=== PATIENT | male | born 1940 | race Caucasian/White ===

== ENCOUNTER 2024-04-18 16:42 | Emergency (ER) | payer MEDICARE, SELFPAY ==
[2024-04-18 17:05] VITALS: BP 210/104; PULSE 92; TEMP 36.7; O2SAT 96; BMI 31.7
[2024-04-18 17:54] LABS: Basophils Percent Auto 0.6 % (0.2-2.0); Eosinophils Absolute Auto 0.2 10^3/uL (0.0-0.7); Eosinophils Percent Auto 4.4 % (0.9-7.0); Hematocrit 43.4 % (42.0-54.0); Immature Granulocytes Abs Auto 0.05 10^3/uL (0.00-0.03); Lymphocytes Absolute Auto 1.2 10^3/uL (1.2-3.8); Lymphocytes Percent Auto 23.7 % (20.5-60.0); Mean Corpuscular HGB Conc 34.6 g/dL (29.9-35.2); Mean Corpuscular Hemoglobin 33.9 pg (25.9-34.0); Mean Platelet Volume 11.1 fL (9.5-13.5); Monocytes Absolute Auto 0.6 10^3/uL (0.3-0.8); Monocytes Percent Auto 10.9 % (1.7-12.0); Neutrophils Percent Auto 59.4 % (43.0-75.0); Platelet Count 225 10^3/uL (150-450); Red Blood Count 4.43 10^6/uL (4.70-6.10); Red Cell Distribution Width 12.5 % (11.0-15.0)
[2024-04-18 18:08] LABS: Alanine Aminotransferase 37 U/L (16-63); Alkaline Phosphatase 72 U/L (46-116); Aspartate Amino Transferase 61 U/L (15-37); BUN Creatinine Ratio 16.5; Bilirubin Total 0.8 mg/dL (0.2-1.0); Calcium 8.9 mg/dL (8.5-10.1); Chloride 93 mmol/L (98-107); Estimated GFR (African America >60 (>=60); Estimated GFR (Non-African Ame >60 (>=60); Globulin 4.2 g/dL; Glucose 104 mg/dL (74-106); Sodium 128 mmol/L (136-145); Total Protein 8.2 g/dL (6.4-8.2)
[2024-04-18 18:09] LABS: Troponin I High Sensitivity 15.1 pg/mL (4.0-76.1)
--- NOTE | 2024-04-18 18:10 | ED_ITS ---
HPI - Chest Pain General Chief Complaint: Chest Pain Stated Complaint: Hypertension Time Seen by Provider: 04/18/24 17:19 Source: patient Mode of arrival: walk-in Limitations: no limitations History of Present Illness HPI narrative: The patient presented to the ER after he had for the last 3 days concern his blood pressure being elevated, it was noted that the patient blood pressure was elevated when he was evaluated by his primary care doctor on Friday and he was started on hydrochlorothiazide 12.5. The patient mentioned that his blood pressure only elevated for the last few days I have multiple readings recorded at 130 and 140 although in the last 24 hours it has been 190 and above systolic The patient denying any chest pain nausea vomiting or any change in bowel movement or any changes in his diet The patient denies any [id number] medication Related Data Previous Rx's ?Medication ?Instructions ?Recorded amlodipine 5 mg tablet 5 mg PO DAILY #10 tabs 04/18/24 Allergies Allergy/AdvReac Type Severity Reaction Status Date / Time No Known Drug Allergies Allergy Verified 04/18/24 17:10 Review of Systems ROS Status of ROS 10 or more systems reviewed and unremark able except as noted in h istory and below Exam Narrative Exam Narrative: Nurses notes and vital signs reviewed and patient is not hypoxic. General: Well-appearing and in no apparent distress. Skin: Warm, dry, no pallor noted. No rash. Head: Normocephalic, atraumatic. Neck: Supple, non-tender. Eye: Pupils are equal, round and EOMI. No scleral icterus. Ears, Nose, Mouth, and Throat: TM are clear, no nasal mucosal hypertrophy. Oral mucosa is moist, no posterior oropharynx erythema, uvula is mid-line Cardiovascular: Regular Rate and Rhythm without murmur, gallop or rub. Respiratory: No accessory muscle use or respiratory distress. Lungs are clear to auscultation, no wheezing, rales or rhonchi Chest Wall: no tenderness Back: No midline thoracic or lumbar vertebral tenderness. No CVA tenderness Musculoskeletal: normal ROM, no calf or popliteal tenderness, no lower extremity edema/swelling GI: Abdomen is soft, non-distended. Normal bowel sounds. No masses appreciated. No tenderness to palpation. No rebound, guarding, or rigidity noted. Neurological: A&O x4. No cranial nerve dysfunction observed. No truncal ataxia. Moves all extremities. Sensation intact. Psychiatric: Cooperative and interactive. Normal mood and affect. Constitutional Vital Signs, click to edit/add: Last Vital Signs Temp 98.0 F 04/18/24 17:05 Pulse 92 H 04/18/24 17:05 Resp 18 04/18/24 17:05 BP 210/104 H 04/18/24 17:05 Pulse Ox 96 04/18/24 17:05 O2 Del Method Room Air 04/18/24 17:05 Course Vital Signs Vital signs: Vital Signs Temperature 98.0 F 04/18/24 17:05 Pulse Rate 92 H 04/18/24 17:05 Respiratory Rate 18 04/18/24 17:05 Blood Pressure 210/104 H 04/18/24 17:05 Pulse Oximetry 96 04/18/24 17:05 Oxygen Delivery Method Room Air 04/18/24 17:05 Temperature 98.0 F 04/18/24 17:05 Pulse Rate 92 H 04/18/24 17:05 Respiratory Rate 18 04/18/24 17:05 Blood Pressure 210/104 H 04/18/24 17:05 Pulse Oximetry 96 04/18/24 17:05 Oxygen Delivery Method Room Air 04/18/24 17:05 MDM - Chest Pain MDM Narrative Medical decision making narrative: EKG showing sinus rhythm with a heart rate of [address] elevation or depression The patient chemistry shows no creatinine showed no acute pathology except for some hyponatremia of 128 which could be secondary to the hydrochlorothiazide It was noted that the patient took an extra 40 mg of lisinopril today by himself as an x-ray to his regular 40 mg because her blood pressure was elevated The patient hydrochlorothiazide was stopped and he was started amlodipine 5 mg daily he is to start that tomorrow and his blood pressure right now is 180 systolic Patient to come back in case of new symptoms or concerns The patient is to follow up with primary care physician in next 2-3 days or to return to the emergency department should any of the signs or symptoms worsen or new symptoms develop. The patient agrees with the following Diagnosis and Treatment plan and the patient will be discharged home. Lab Data Labs: Lab Results 04/18/24 Range/Units 17:33 WBC 5.0 (4.0-11.0) 10^3/uL RBC 4.43 L (4.70-6.10) 10^6/uL Hgb 15.0 (14.0-18.0) g/dL Hct 43.4 (42.0-54.0) % MCV 98.0 H (80.0-94.0) fL MCH 33.9 (25.9-34.0) pg MCHC 34.6 (29.9-35.2) g/dL RDW 12.5 (11.0-15.0) % Plt Count 225 (150-450) 10^3/uL MPV 11.1 (9.5-13.5) fL Neut % (Auto) 59.4 (43.0-75.0) % Lymph % (Auto) 23.7 (20.5-60.0) % [place] % (Auto) 10.9 (1.7-12.0) % Eos % (Auto) 4.4 (0.9-7.0) % Baso % (Auto) 0.6 (0.2-2.0) % Neut # (Auto) 3.0 (1.4-6.5) 10^3/uL Lymph # (Auto) 1.2 (1.2-3.8) 10^3/uL [place] # (Auto) 0.6 (0.3-0.8) 10^3/uL Eos # (Auto) 0.2 (0.0-0.7) 10^3/uL Baso # (Auto) 0.0 (0.0-0.1) 10^3/uL Abs Immat Gran (auto) 0.05 H (0.00-0.03) 10^3/uL Imm/Tot Granulo (auto) 1.0 H (0.0-0.5) % Sodium 128 L (136-145) mmol/L Potassium 5.0 (3.5-5.1) mmol/L Chloride 93 L (98-107) mmol/L Carbon Dioxide 25.0 (21.0-32.0) mmol/L Anion Gap 15.0 BUN 13.0 (7.0-18.0) mg/dL Creatinine 0.79 (0.70-1.30) mg/dL Est GFR ( Amer) >60 (>=60) Est GFR (Non-Af Amer) >60 (>=60) BUN/Creatinine Ratio 16.5 Glucose 104 (74-106) mg/dL Calcium 8.9 (8.5-10.1) mg/dL Total Bilirubin 0.8 (0.2-1.0) mg/dL AST 61 H (15-37) U/L ALT 37 (16-63) U/L Alkaline Phosphatase 72 (46-116) U/L Troponin I High Sens 15.1 (4.0-76.1) pg/mL Total Protein 8.2 (6.4-8.2) g/dL Albumin 4.0 (3.4-5.0) g/dL Globulin 4.2 g/dL Albumin/Globulin Ratio 1.0 Discharge Plan Discharge Stand Alone Forms: Portal Instructions Chief Complaint: Chest Pain Clinical Impression: Benign essential HTN Patient Disposition: Home, Self-Care Time of Disposition Decision: 18:50 Condition: Good Prescriptions / Home Meds: New amlodipine 5 mg tablet 5 mg PO DAILY Qty: 10 0RF Print Language: Ukrainian Instructions: Hypertension (ED) Referrals: RANDY DELGADO [Primary Care Provider] - 1 week
--- NOTE | 2024-04-18 18:17 | ECG_ITS ---
[facility] Test Date: 2024-04-18 Pat Name: COLLIN PÉREZ Department: Room: - Gender: Male [employer] Project Manager: : 1940 Requested By: RANDY DELGADO Order Number: [id number] Reading MD: KEKE PANDYA Measurements Intervals [place] Rate: 104 P: 41 SC: 164 QRS: 41 QRSD: 90 T: 35 QT: 368 QTc: 428 Interpretive Statements 1120 Sinus tachycardia 1470 with occasional supraventricular premature complexes 1570 with occasional ventricular premature complexes 9140 abnormal rhythm ECG Compared to ECG 05/17/2022 17:44:37 Ventricular premature complex(es) now present Sinus rhythm no longer present Electronically Signed On 04-19-2024 7:46:52 EDT by KEKE PANDYA
== END 2024-04-18 19:09 | disposition home or self-care (01) ==
PROVIDERS: Emergency Provider Emergency Medicine; PCP Family Medicine
DX: I10 Essential (primary) hypertension (principal); Z79.899 Other long term (current) drug therapy
CPT/HCPCS: 36415; 80053; 84484; 85025; 93005; 99284